=== PATIENT | female | born 1975 | race Caucasian/White ===

== ENCOUNTER → 2016-11-06 | Outpatient (CLI) | payer OTHER ==
[~2016-11-06] MED LIST: PRENTAB26 PO
--- NOTE | 2016-11-06 13:49 | Discharge Instructions ---
Discharge Instructions Procedure Procedure Date: Nov 06, 2016. Reason for visit: Right Calcs. Discharge Discharge Date: Nov 06, 2016. Discharge Diagnosis: post right breast stereotactic guided biopsy Instructions Activity Recommendations: Additional Limitations (see below) Return to School/Work: no limitations Recommended Home Diet: No Limitations Provider Instructions: ACTIVITY RECOMMENDATIONS: * No lifting, pushing, pulling or exercising the affected side for three days. RETURN TO SCHOOL/WORK: * You may return to work/school after the procedure, but do not perform any strenuous activities for 24 to 48 hours. MEDICATIONS: * Tylenol (two 325 mg) every four to six hours if needed for mild pain (if not allergic to Tylenol). DIET: * Resume previous diet. SPECIAL CARE INSTRUCTIONS: * Keep biopsy site dry for 24 hours. May shower after 24 hours, but do not soak (bathe) incision. * May remove Tegaderm (plastic patch) tomorrow AFTER showering. * Leave the steri-strips on for one week. Allow the steri-strips to fall off by themselves. If not off after one week, you may remove them. You may place a Bandaid crosswise over the strips, if desired. * Apply ice 10 minutes on and 10 minutes off as needed. * Wear a bra at bedtime to sleep more comfortably for 2-3 days. * Your referring physician should have the results after approximately 5 to 7 business days. * Call for unusual bleeding, fever, drainage, etc or if you have any questions call [phone] during normal business hours or after hours call Dr Lares, . FOLLOW UP VISIT: Follow-up with Referring Physician as scheduled. Allergies Coded Allergies: Azithromycin (Verified Allergy, Mild, 12/09/09) Boogie Yuan Recommendations: Call your doctor if: * Temperature above 101 degrees * Pain not relieved by pain medicine ordered * There is increased drainage or redness from any incision * You have any unanswered questions or concerns. Your Doctors Instructions noted above were prepared by provider Lindsay Lares. Patient Signature Section: Patient Instructions Signature Page Nelda Kaiser Patient (or Guardian) Signature/Date: I have read and understand the instructions given to me by my caregivers. Caregiver/RN/Doctor Signature/Date: The above-named patient and/or guardian has received patient instructions on this date. + Original Patient Signature Page (only) stays with chart. Please make copy for patient.
--- NOTE | 2016-11-06 15:10 | MAMMOGRAPHY REPORT ---
UNILATERAL RIGHT DIGITAL DIAGNOSTIC MAMMOGRAM: 11/06/2016 CLINICAL HISTORY: Status post stereotactic biopsy of clustered microcalcifications in the 6:00 right breast. FINDINGS: Please refer to the report from right breast stereotactic guided biopsy performed at the same time for full detail. IMPRESSION: POST PROCEDURE IMAGING FOR MARKER PLACEMENT Please refer to the report from right breast stereotactic guided biopsy performed at the same time f or full detail. Approximately 10% of breast cancers are not detected with mammography. A negative mammographic repor t should not delay biopsy if a clinically suggestive mass is present. Lindsay Lares M.D. ay/:11/06/2016 13:51:08 Attending Technologist: Nicole Howard, [facility] Electrician: Michelle DÍAZ(R)(M), [facility] BI-RADS Code: Post Procedure Imaging For Marker Placement
--- NOTE | 2016-11-06 15:10 | MAMMOGRAPHY REPORT ---
STEREOTACTIC GUIDED BIOPSY RIGHT BREAST: 11/06/2016 CLINICAL HISTORY: Indeterminate grouped microcalcifications in the 6:00 right breast. Patient prese nted for stereotactic biopsy. COMPARISON: Comparison is made to exams dated: 10/23/2016 mammogram, 10/12/2016 mammogram, 10/11/2015 mammogram - [facility], 05/05/2008, and 01/05/2014 mammogram - [facility]. PATIENT CONSENT: After explaining the risks, benefits and alternatives of the procedure to the patie nt, informed consent was obtained both verbally and in writing. Specific risks include: Bleeding, i nfection, puncture of adjacent structure, nontarget biopsy, sampling error and medication reaction. PROCEDURE DESCRIPTION: A time-out was performed and the right breast was confirmed as the site of bi opsy. The patient was initially scouted in the ML position. However, the grouped calcifications wer e not clearly identified. Then positioning was changed to CC from below and an AP beater lead image was o btained that demonstrated the grouped microcalcifications in question. They are amenable to sterota ctic biopsy. Then +15 and -15 stereo pair images were obtained. The calcifications were targeted u tilizing the coordinates obtained by the computer. The skin was prepped with Betadine. 1% Lidocaine with and without epinipherine was administered as local anesthesia. A small skin incision was made. Through the incision, the needle was inserted to the depth determined by the computer. 10 samples were obtained using a Spotlightiva 9-gauge vacuum-assisted biopsy device. The specimen radiograph dem onstrated nearly the entire dental detail representative cluster of microcalcifications, therefore, a metallic mar ker was placed at the biopsy site. There was no immediate complication. Hemostasis was achieved afte r several minutes of manual compression. The samples were sent to pathology in an appropriately lab eled container. Postprocedure CC and ML views of the right breast demonstrate a new metallic biopsy marker, small ci rcular air pocket and no significant hematoma in the 6:00 breast, at the site of the biopsied groupe d microcalcifications. IMPRESSION: STEREOTACTIC GUIDED BIOPSY Status post right breast stereotactic guided biopsy of grouped micro-calcifications in the 6:[address], with biopsy marker placed at the site. The patient will receive notification of the biopsy results from her referring physician. Lindsay Lares M.D. ay/:11/06/2016 14:49:38 Attending Technologist: Nicole Howard, [facility] Superintendent Transmission: Michelle DÍAZ(R)(M), [facility]
== END | disposition home or self-care (01) ==
LOC: C.MAMM 12:32
PROVIDERS: ATTEND Obstetrics & Gynecology
DX: R92.1 Mammographic calcification found on diagnostic imaging of breast (principal)

== ENCOUNTER → 2017-10-14 | Outpatient (CLI) | payer OTHER ==
--- NOTE | 2017-10-15 07:48 | MAMMOGRAPHY REPORT ---
BILATERAL DIGITAL SCREENING MAMMOGRAM TOMOSYNTHESIS WITH CAD: 10/14/2017 CLINICAL HISTORY: Routine screening. Patient has no complaints. TECHNIQUE: Breast tomosynthesis in addition to standard 2D mammography was performed. Current study was also evaluated with a Computer Aided Detection (CAD) system. COMPARISON: Comparison is made to exams dated: 11/06/2016 stereotactic biopsy, 11/06/2016 mammogram, mammogram, 10/12/2016 mammogram, 10/11/2015 mammogram, and 01/05/2014 mammogram - [facility]. BREAST COMPOSITION: The tissue of both breasts is extremely dense, which lowers the sensitivity of m ammography. FINDINGS: A linear scar marker overlies the lower inner quadrant of the right breast. There is also a stable dumbbell shaped metallic biopsy marker clip in the lower inner right breast. No new suspici ous mass, architectural distortion or cluster of microcalcifications is seen. IMPRESSION: ACR BI-RADS CATEGORY 1: NEGATIVE There is no mammographic evidence of malignancy. A 1 year screening mammogram is recommended. The pa tient will receive written notification of the results. Approximately 10% of breast cancers are not detected with mammography. A negative mammographic report should not delay biopsy if a clinically suggestive mass is present. Lindsay Lares M.D. ay/:10/14/2017 16:43:35 Sales And Marketing Administrator: Nicole Howard, [facility] letter sent: Normal 1/2 BI-RADS Code: ACR BI-RADS Category 1: Negative
== END | disposition home or self-care (01) ==
LOC: C.MAMM 14:28
PROVIDERS: ATTEND Obstetrics & Gynecology
DX: Z12.31 Encounter for screening mammogram for malignant neoplasm of breast (principal)